=== PATIENT | male | born 1980 | race Caucasian/White ===

== ENCOUNTER → 2016-05-22 | Emergency (ER) | payer OTHER ==
--- NOTE | 2016-05-22 15:50 | ED ORDER SUMMARY ---
..... Patient: JESSICA LATIF OrderSheet [facility] VisitID: [id number] [address] [place] [address] 35y, M Registration Date/Time: 05/22/2016 ORDER SHEET Weight: 95.2 kg (stated) Allergies: Unknown GENERAL ORDERS: MEDICATION ORDERS: Tdap IM 0.5 mL (NOW, per protocol) (15:48 05/22/2016 HBivens A.R.N.P.) (Ack 15:51 SStone R.N.) (16:12 SStone R.N.) IV FLUIDS: ORDER SHEET NOTES: [Electronically signed by Sendy ArguetaRLuzN.PLuz (16:10 05/22/2016)] [Electronically signed by Aggie Wilhelm R.N. (16:14 05/22/2016)] [Electronically locked/signed by Aggie Wilhelm R.N. (16:14 05/22/2016)]
--- NOTE | 2016-05-22 15:50 | ED NURSING NOTES ---
Clinical Report - Nurses [facility] [place] [address] 05/22/2016 15:26 Patient: JESSICA LATIF TRIAGE Triage time 15:42. Acuity: LEVEL 4. Chief Complaint: REDNESS, PAIN and INJURY TO LEFT EYE. --15:46 Aggie Wilhelm R.N. 15:42 05/22/16. BP: 137/76. HR: 75. RR: 18. O2 saturation: 98%. Temp: 97.9 F. Pain level now: 07/25. --15:46 Aggie Wilhelm R.N. Weight: 95.2 kg stated. Height/Length: 72 inches Per Patient. BMI: 28.5. --15:45 Aggie Wilhelm R.N. Medications None. --15:45 Aggie Wilhelm R.N. Allergies Unknown. --15:44 Aggie Wilhelm R.N. History Arrived by private vehicle. Historian: patient. This started just prior to arrival. He sustained injury. ( Branch fell and hit patient in the eye.). 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 PAST MEDICAL HX: Immunizations: status is unknown. SURGERY HX: ( back surgery x 2, clavicle, wrist x 2). SOCIAL HX: No alcohol use or drug use. No infectious disease exposure. FALL RISK ASSESSMENT: Fall risk assessment completed. No fall risk identified. NUTRITIONAL RISK ASSESSMENT: The nutritional risk assessment revealed no deficiencies. FUNCTIONAL ASSESSMENT: Functional assessment: no impairments noted. LEARNING NEEDS ASSESSMENT: The learning needs assessment revealed no barriers. SKIN INTEGRITY ASSESSMENT: Skin integrity risk assessment completed. No skin integrity risk identified. --15:46 Aggie Wilhelm R.N. Interventions ID band on patient. To treatment room. --15:46 Aggie Wilhelm R.N. PHYSICAL ASSESSMENT GENERAL / NEURO / PSYCH: Alert. Appears in no acute distress. HEENT: No facial asymmetry noted. Visual acuity without corrective lenses: left eye 20/20; right eye 20/20; both eyes 20/20. Conjunctival findings present: redness of the left conjunctiva. SKIN: Skin is warm and dry. --15:47 Aggie Wilhelm R.N. NURSING PROGRESS NOTES Head of bed elevated. Reassurance given. Call light placed in reach. Side rails up. Bed placed in lowest position. Brakes of bed on. --15:47 Aggie Wilhelm R.N. 16:00 05/22/2016 TDAP IM 0.5 mL given. (Lot#: [id number]). Given in the left deltoid. Confirmed 5 rights. --16:12 Aggie Wilhelm R.N. DISPOSITION / DISCHARGE Departure time: 1602. Condition at departure: unchanged and stable. No learning barriers present. Discharge instructions provided and reviewed with the patient. Reviewed medication(s) side effects information. Prescription(s) given to the patient. Reviewed referral to an mohs surgeon and worker's compensation for followup. Patient and web art director verbalized understanding. Written instructions provided in Mongolian. The patient was discharged home and accompanied by web art director. He left the Emergency Department ambulatory and via private vehicle. Hand Edger driving. --16:09 Aggie Wilhelm R.N. 16:08 05/22/16. BP: 137/76. HR: 85. RR: 18. O2 saturation: 100%. Pain level now: 07/25. --16:09 Aggie Wilhelm R.N. Locked/Released at 05/22/2016 16:14 by Aggie Wilhelm R.N.
--- NOTE | 2016-05-22 15:50 | ED CLINICAL REPORT ---
Clinical Report - Physicians/Mid Levels [facility] [address] [place] [address] 05/22/2016 15:26 Patient: JESSICA LATIF Time Seen: 15:40; upon arrival, initial patient contact, initial documentation, patient care assumed. Arrived- By private vehicle. Historian- patient. HISTORY OF PRESENT ILLNESS Chief Complaint: EYE PAIN and REDNESS. This started just prior to arrival, involves the left eye, is characterized as mild and has been constant and is still present. The patient sustained injury. This occurred at work. He has had direct trauma. Mechanism- doing yard work, and branch hit me in the eye. Not injured from contact lenses. Eye pain, discomfort and redness. No photophobia, blurred vision, double vision, decreased vision or loss of vision. ( no safety googles on). REVIEW OF SYSTEMS All systems otherwise negative, except as recorded above. PAST HISTORY See nurses notes. Additional Problems: Gastroenteritis.. Additional Surgeries: Back Surgery. Collar bone. Wrist surgery.. SOCIAL HISTORY Never smoker. Occasional alcohol use. No drug use. FAMILY HISTORY No significant family medical history. ADDITIONAL NOTES The nursing notes have been reviewed with agreement regarding the chief complaint, HPI, ROS, PMH and patient medications and allergies. PHYSICAL EXAM Appearance: Alert. Oriented X3. No acute distress. HEENT: Nose normal. Pharynx normal. Head appears normal to external inspection. Eyes: Visual acuity noted- see nurse's notes. Eyelids appear normal to inspection. Conjunctivae and sclerae do not appear normal to inspection. Corneas appear normal to inspection. Pupils equal, round and reactive to light. Accommodation normal. Funduscopic exam normal. Visual bhat normal. EOMs intact. Periorbital areas appear normal to inspection. Anterior chambers clear. Anterior chambers of normal depth. Rt Eye: Right eye exam normal. Lt Eye: Left eye exam abnormal. Medium sized subconjunctival hemorrhage. Neck: Neck supple. Normal inspection. Respiratory: No respiratory distress. Skin: No rash. Extremities: Extremities negative. Neuro: Oriented X 3. Mood/affect normal. No motor deficit. No sensory deficit. PROGRESS AND PROCEDURES Course of Care: 15:56 05/22/16. L&I paper work completed. Patient counseled in person regarding the patient's stable condition and diagnosis. 15:50. Differential Diagnosis: Other possible considerations: corneal abrasion, fb, globe trauma, retinal detachment. Above considerations are based on history and physical exam. Differential diagnosis was discussed with patient. Disposition: Discharged home in good and unchanged condition (15:50). Condition: good and stable. CLINICAL IMPRESSION Left subconjunctival hemorrhage INSTRUCTIONS Warnings: GENERAL WARNINGS: Return or contact your physician immediately if your condition worsens or changes unexpectedly, if not improving as expected, or if other problems arise. Specifically return if problem worsens. Prescription Medications: Gentamicin ophthalmic ointment 0.3% : Apply 1/2 inch to inner aspect of the lower lid on the affected eye every 8 hours for 1 week. Dispense three and one half (3.5) gm. No refills. Understanding of the discharge instructions verbalized by patient. Follow-up with: Darin Waters MD, Ophthalmology, , [address] [facility], [place], [address] Follow up tomorrow even if well. Call for an appointment. Summary of care provided to patient. (Electronically signed by Sendy Argueta A.R.N.P. 05/22/2016 16:10)
--- NOTE | 2016-05-22 15:50 | ED NURSING NOTES ---
Clinical Report - Nurses [facility] [place] [address] 05/22/2016 15:26 Patient: JESSICA LATIF TRIAGE Triage time 15:42. Acuity: LEVEL 4. Chief Complaint: REDNESS, PAIN and INJURY TO LEFT EYE. --15:46 Aggie Wilhelm R.N. 15:42 05/22/16. BP: 137/76. HR: 75. RR: 18. O2 saturation: 98%. Temp: 97.9 F. Pain level now: 07/25. --15:46 Aggie Wilhelm R.N. Weight: 95.2 kg stated. Height/Length: 72 inches Per Patient. BMI: 28.5. --15:45 Aggie Wilhelm R.N. Medications None. --15:45 Aggie Wilhelm R.N. Allergies Unknown. --15:44 Aggie Wilhelm R.N. History Arrived by private vehicle. Historian: patient. This started just prior to arrival. He sustained injury. ( Branch fell and hit patient in the eye.). 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 PAST MEDICAL HX: Immunizations: status is unknown. SURGERY HX: ( back surgery x 2, clavicle, wrist x 2). SOCIAL HX: No alcohol use or drug use. No infectious disease exposure. FALL RISK ASSESSMENT: Fall risk assessment completed. No fall risk identified. NUTRITIONAL RISK ASSESSMENT: The nutritional risk assessment revealed no deficiencies. FUNCTIONAL ASSESSMENT: Functional assessment: no impairments noted. LEARNING NEEDS ASSESSMENT: The learning needs assessment revealed no barriers. SKIN INTEGRITY ASSESSMENT: Skin integrity risk assessment completed. No skin integrity risk identified. --15:46 Aggie Wilhelm R.N. Interventions ID band on patient. To treatment room. --15:46 Aggie Wilhelm R.N. PHYSICAL ASSESSMENT GENERAL / NEURO / PSYCH: Alert. Appears in no acute distress. HEENT: No facial asymmetry noted. Visual acuity without corrective lenses: left eye 20/20; right eye 20/20; both eyes 20/20. Conjunctival findings present: redness of the left conjunctiva. SKIN: Skin is warm and dry. --15:47 Aggie Wilhelm R.N. NURSING PROGRESS NOTES Head of bed elevated. Reassurance given. Call light placed in reach. Side rails up. Bed placed in lowest position. Brakes of bed on. --15:47 Aggie Wilhelm R.N. 16:00 05/22/2016 TDAP IM 0.5 mL given. (Lot#: [id number]). Given in the left deltoid. Confirmed 5 rights. --16:12 Aggie Wilhelm R.N. DISPOSITION / DISCHARGE Departure time: 1602. Condition at departure: unchanged and stable. No learning barriers present. Discharge instructions provided and reviewed with the patient. Reviewed medication(s) side effects information. Prescription(s) given to the patient. Reviewed referral to an religious education coordinator and worker's compensation for followup. Patient and producer verbalized understanding. Written instructions provided in [place]. The patient was discharged home and accompanied by producer. He left the Emergency Department ambulatory and via private vehicle. Harness Fitter driving. --16:09 Aggie Wilhelm R.N. 16:08 05/22/16. BP: 137/76. HR: 85. RR: 18. O2 saturation: 100%. Pain level now: 07/25. --16:09 Aggie Wilhelm R.N. Locked/Released at 05/22/2016 16:14 by Aggie Wilhelm R.N.
--- NOTE | 2016-05-22 15:50 | ED CLINICAL REPORT ---
Clinical Report - Physicians/Mid Levels [facility] [address] [place] [address] 05/22/2016 15:26 Patient: JESSICA LATIF Time Seen: 15:40; upon arrival, initial patient contact, initial documentation, patient care assumed. Arrived- By private vehicle. Historian- patient. HISTORY OF PRESENT ILLNESS Chief Complaint: EYE PAIN and REDNESS. This started just prior to arrival, involves the left eye, is characterized as mild and has been constant and is still present. The patient sustained injury. This occurred at work. He has had direct trauma. Mechanism- doing yard work, and branch hit me in the eye. Not injured from contact lenses. Eye pain, discomfort and redness. No photophobia, blurred vision, double vision, decreased vision or loss of vision. ( no safety googles on). REVIEW OF SYSTEMS All systems otherwise negative, except as recorded above. PAST HISTORY See nurses notes. Additional Problems: Gastroenteritis.. Additional Surgeries: Back Surgery. Collar bone. Wrist surgery.. SOCIAL HISTORY Never smoker. Occasional alcohol use. No drug use. FAMILY HISTORY No significant family medical history. ADDITIONAL NOTES The nursing notes have been reviewed with agreement regarding the chief complaint, HPI, ROS, PMH and patient medications and allergies. PHYSICAL EXAM Appearance: Alert. Oriented X3. No acute distress. HEENT: Nose normal. Pharynx normal. Head appears normal to external inspection. Eyes: Visual acuity noted- see nurse's notes. Eyelids appear normal to inspection. Conjunctivae and sclerae do not appear normal to inspection. Corneas appear normal to inspection. Pupils equal, round and reactive to light. Accommodation normal. Funduscopic exam normal. Visual bhat normal. EOMs intact. Periorbital areas appear normal to inspection. Anterior chambers clear. Anterior chambers of normal depth. Rt Eye: Right eye exam normal. Lt Eye: Left eye exam abnormal. Medium sized subconjunctival hemorrhage. Neck: Neck supple. Normal inspection. Respiratory: No respiratory distress. Skin: No rash. Extremities: Extremities negative. Neuro: Oriented X 3. Mood/affect normal. No motor deficit. No sensory deficit. PROGRESS AND PROCEDURES Course of Care: 15:56 05/22/16. L&I paper work completed. Patient counseled in person regarding the patient's stable condition and diagnosis. 15:50. Differential Diagnosis: Other possible considerations: corneal abrasion, fb, globe trauma, retinal detachment. Above considerations are based on history and physical exam. Differential diagnosis was discussed with patient. Disposition: Discharged home in good and unchanged condition (15:50). Condition: good and stable. CLINICAL IMPRESSION Left subconjunctival hemorrhage INSTRUCTIONS Warnings: GENERAL WARNINGS: Return or contact your physician immediately if your condition worsens or changes unexpectedly, if not improving as expected, or if other problems arise. Specifically return if problem worsens. Prescription Medications: Gentamicin ophthalmic ointment 0.3% : Apply 1/2 inch to inner aspect of the lower lid on the affected eye every 8 hours for 1 week. Dispense three and one half (3.5) gm. No refills. Understanding of the discharge instructions verbalized by patient. Follow-up with: Darin Waters MD, Ophthalmology, , [address], [place], [address] Follow up tomorrow even if well. Call for an appointment. Summary of care provided to patient. (Electronically signed by Sendy Argueta A.R.N.P. 05/22/2016 16:10)
--- NOTE | 2016-05-22 15:50 | ED ORDER SUMMARY ---
..... Patient: JESSICA LATIF OrderSheet [facility] VisitID: [id number] [address] [place] [address] 35y, M Registration Date/Time: 05/22/2016 ORDER SHEET Weight: 95.2 kg (stated) Allergies: Unknown GENERAL ORDERS: MEDICATION ORDERS: Tdap IM 0.5 mL (NOW, per protocol) (15:48 05/22/2016 HBivens A.R.N.P.) (Ack 15:51 SStone R.N.) (16:12 SStone R.N.) IV FLUIDS: ORDER SHEET NOTES: [Electronically signed by Sendy ArguetaRLuzN.PLuz (16:10 05/22/2016)] [Electronically signed by Aggie Wilhelm R.N. (16:14 05/22/2016)] [Electronically locked/signed by Aggie Wilhelm R.N. (16:14 05/22/2016)]
--- NOTE | 2016-05-22 16:14 | ED DISCHARGE INSTRUCTIONS ---
Patient: JESSICA LATIF General Instructions [facility] VisitID: [id number] [address] [place] [address] 35y, M Registration Date/Time: 05/22/2016 Left subconjunctival hemorrhage INSTRUCTIONS Warnings: GENERAL WARNINGS: Return or contact your physician immediately if your condition worsens or changes unexpectedly, if not improving as expected, or if other problems arise. Specifically return if problem worsens. Prescription Medications: Gentamicin ophthalmic ointment 0.3% : Apply 1/2 inch to inner aspect of the lower lid on the affected eye every 8 hours for 1 week. Dispense three and one half (3.5) gm. No refills. Understanding of the discharge instructions verbalized by patient. Follow-up with: Darin Waters MD, Ophthalmology, , [address] [facility], [place], [address] Follow up tomorrow even if well. Call for an appointment. Summary of care provided to patient. ADDITIONAL INFORMATION Subconjunctival Hemorrhage A subconjunctival hemorrhage is a result of a broken blood vessel in the white portion of the eye. It is usually painless and may be caused by coughing, sneezing or vomiting. An injury to the eye can cause this. It can also be a sign of hypertension (high blood pressure) or a bleeding disorder. Although it can look frightening, the presence of the blood is not serious. The blood will be reabsorbed without treatment within 2-3 weeks. Home Care: You may continue your usual activities. Get Prompt Medical Attention if any of the following occur: Pain in the eye Change in vision The blood does not disappear within three weeks Increasing redness or swelling of the eye Severe headache or dizziness Other signs of bruising or bleeding from other parts of your body You have been given the following additional information: Subconjunctival Hemorrhage (Electronically signed by Sendy Argueta A.R.N.P. 05/22/2016 16:10)
--- NOTE | 2016-05-22 16:14 | ED MAR SUMMARY ---
..... Medication Administration Record [facility] [address] [place] [address] Patient: JESSICA LATIF Visit ID: [id number] 35y, M Weight: 95.2 kg Height/Length: 72 in BMI: 28.5 ALLERGIES: Unknown Given 16:00 05/22/2016 Aggie Wilhelm R.N. Medication Administered: TDAP [IM], Dose: 0.5 mL IM. Medication Ordered: Tdap IM 0.5 mL (NOW, per protocol).
--- NOTE | 2016-05-22 16:14 | ED MED RECONCILIATION SUMMARY ---
Patient: JESSICA LATIF Medication Reconciliation Report [facility] VisitID: [id number] [address] [place] [address] 35y, M Registration Date/Time: 05/22/2016 Weight: 95.2 kg Height/Length: 72 in. BMI: 28.5 ALLERGIES: Unknown The patient's Home Medications are listed below: NONE. The source(s) of the original Home Medication information: Not obtained. The following Medications were given to the patient in the Emergency Department: TDAP [IM] IM 0.5 mL, administered: 05/22/2016 4:00:00 PM The following Medications were prescribed to the patient: Gentamicin ophthalmic ointment 0.3% : Apply 1/2 inch to inner aspect of the lower lid on the affected eye every 8 hours for 1 week. Dispense three and one half (3.5) gm. No refills. -- Sendy Argueta A.R.N.P.
--- NOTE | 2016-05-22 16:14 | ED MAR SUMMARY ---
..... Medication Administration Record [facility] [address] [place] [address] Patient: JESSICA LATIF Visit ID: [id number] 35y, M Weight: 95.2 kg Height/Length: 72 in BMI: 28.5 ALLERGIES: Unknown Given 16:00 05/22/2016 Aggie Wilhelm R.N. Medication Administered: TDAP [IM], Dose: 0.5 mL IM. Medication Ordered: Tdap IM 0.5 mL (NOW, per protocol).
--- NOTE | 2016-05-22 16:14 | ED MED RECONCILIATION SUMMARY ---
Patient: JESSICA LATIF Medication Reconciliation Report [facility] VisitID: [id number] [address] [place] [address] 35y, M Registration Date/Time: 05/22/2016 Weight: 95.2 kg Height/Length: 72 in. BMI: 28.5 ALLERGIES: Unknown The patient's Home Medications are listed below: NONE. The source(s) of the original Home Medication information: Not obtained. The following Medications were given to the patient in the Emergency Department: TDAP [IM] IM 0.5 mL, administered: 05/22/2016 4:00:00 PM The following Medications were prescribed to the patient: Gentamicin ophthalmic ointment 0.3% : Apply 1/2 inch to inner aspect of the lower lid on the affected eye every 8 hours for 1 week. Dispense three and one half (3.5) gm. No refills. -- Sendy Argueta A.R.N.P.
--- NOTE | 2016-05-22 16:14 | ED DISCHARGE INSTRUCTIONS ---
Patient: JESSICA LATIF General Instructions [facility] VisitID: [id number] [address] [place] [address] 35y, M Registration Date/Time: 05/22/2016 Left subconjunctival hemorrhage INSTRUCTIONS Warnings: GENERAL WARNINGS: Return or contact your physician immediately if your condition worsens or changes unexpectedly, if not improving as expected, or if other problems arise. Specifically return if problem worsens. Prescription Medications: Gentamicin ophthalmic ointment 0.3% : Apply 1/2 inch to inner aspect of the lower lid on the affected eye every 8 hours for 1 week. Dispense three and one half (3.5) gm. No refills. Understanding of the discharge instructions verbalized by patient. Follow-up with: Darin Waters MD, Ophthalmology, , [address] [facility], [place], [address] Follow up tomorrow even if well. Call for an appointment. Summary of care provided to patient. ADDITIONAL INFORMATION Subconjunctival Hemorrhage A subconjunctival hemorrhage is a result of a broken blood vessel in the white portion of the eye. It is usually painless and may be caused by coughing, sneezing or vomiting. An injury to the eye can cause this. It can also be a sign of hypertension (high blood pressure) or a bleeding disorder. Although it can look frightening, the presence of the blood is not serious. The blood will be reabsorbed without treatment within 2-3 weeks. Home Care: You may continue your usual activities. Get Prompt Medical Attention if any of the following occur: Pain in the eye Change in vision The blood does not disappear within three weeks Increasing redness or swelling of the eye Severe headache or dizziness Other signs of bruising or bleeding from other parts of your body You have been given the following additional information: Subconjunctival Hemorrhage (Electronically signed by Sendy Argueta A.R.N.P. 05/22/2016 16:10)
== END ==
LOC: ED SRH 15:19
DX: S05.02XA Injury of conjunctiva and corneal abrasion without foreign body, left eye, initial encounter (principal); W22.8XXA Striking against or struck by other objects, initial encounter; Y93.H9 Activity, other involving exterior property and land maintenance, building and construction; Y92.9 Unspecified place or not applicable; Y99.0 Civilian activity done for income or pay; Z23 Encounter for immunization